=== PATIENT | male | born 1960 | race Two or more races ===

== ENCOUNTER 2020-01-11 17:11 | Emergency (ER) | payer OTHER ==
[~2020-01-11] VITALS: Ht 177.8 cm; Wt 77.1 kg
[2020-01-11 17:15] VITALS: BP 145/82
--- NOTE | 2020-01-11 17:23 | Emergency Room Report ---
History of Present Illness General Chief Complaint: Flu Like Symptoms Source: Patient Present Illness HPI Disclaimer: Please note that this report is being documented using DRAGON technology. This can lead to erroneous entry secondary to incorrect interpretation by the dictating instrument. HPI: 59-year-old male presents for evaluation of cough. Symptoms present 3 to 4 days. Nonproductive. Denies fever, chest pain, palpitations, shortness of breath, neck stiffness, rash, abdominal pain, nausea, vomiting, diarrhea. Patient states he always has nasal congestion and a sore throat due to chronic sinusitis. He is concerned because his stepson returned from [place] yesterday. Does not believe his son is sick but is not had any contact with them yet. They do share the same grounds but the patient lives in a different apartment from his son. His cough was present prior to his son's arrival yesterday. No other sick contacts noted. No recent travel for patient PMH: Diabetes, hypertension Allergies: None reported COVID-19 risk:Contact w/high r: Yes COVID-19 risk:Travel to affect: No Has patient experienced fuentes: Yes Coronavirus symptoms experienc: Cough Allergies: Coded Allergies: No Known Allergies (Unverified , 01/11/20) Review of Systems All Other Systems: negative except mentioned in HPI Physical Exam Vital Signs Date Time Temp Pulse Resp B/P (MAP) Pulse Ox O2 Delivery O2 Flow Rate FiO2 01/11/20 17:13 98.1 86 19 145/82 (103) 95 Room Air General: Awake and alert, no acute distress HEENT: NC/AT. EOMI. Cardiovascular: RRR. S1 and S2 normal. No murmur appreciated Resp: Normal work of breathing. No cough, wheezing or crackles appreciated Abdomen: Abdomen is soft, nondistended. Nontender Skin: Intact. No abrasions, laceration or rash over the exposed skin MSK: Normal tone and bulk. Moving all extremities. No obvious deformity. Neuro: Awake and alert. Mentating appropriately. Medical Decision Making Diagnostic Impression: Primary Impression: Cough Additional Impression: Pneumonia ER Course 59-year-old male presents for evaluation of nonproductive cough. While the patient does have and exposure to his stepson recently returning from [place] his symptoms started before his son arrived and has had no contact with him yet. He does not believe his son is ill. Otherwise he is well-appearing his lungs are clear, afebrile and denies any respiratory disease history. Novel coronavirus swab is unavailable at this facility at this time. Do not see indication for acute lab testing or imaging. He will be discharged and instructed to follow isolation/quarantine precautions for the next 2 weeks. Provide documentation for work regarding these recommendations. He can be tested at commercial labs in accordance with his PMD. Instructed to return with any new or worsening symptoms. Chest X-Ray Diagnostic Results Chest X-Ray Diagnostic Results : Chest X-Ray Ordered: Yes # of Views/Limited/Complete: 1 View Indication: Other - cough EP Interpretation: Yes Interpretation: no effusion, no pneumothorax, other - Possible early consolidation right lower lobe Impression: Other - Possible early pneumonia versus atelectasis right lower lobe Electronically Signed by: Electronically signed by Dr. Reid Latham Reevaluation Time: 18:08 Last Vital Signs Date Time Temp Pulse Resp B/P (MAP) Pulse Ox O2 Delivery O2 Flow Rate FiO2 01/11/20 17:13 98.1 86 19 145/82 (103) 95 Room Air Reevaluation Impression Notified by nursing staff that the patient eloped from the emergency department. X-ray concerning for possible early infiltrate of the right lower lobe though this may be atelectasis as well. Did not have a chance to discuss these findings with patient though I did send a medication for azithromycin to his pharmacy. Will call [facility] as he is a patient of [facility]. I did discuss with him quarantine precaution on my initial evaluation anticipating discharge but was not able to provide him with the paperwork to give to his employer. Will attempt to contact to relay this information. Disposition: ELOPED Condition: Stable Scripts Azithromycin* (ZITHROMAX*) 250 Mg Tablet 250 MG ORAL DAILY, #6 TAB 0 Refills Take two tables once daily for 1 day, then one tablet once daily for 4 days. Prov: Reid Latham MD 01/11/20 Reid Latham MD Jan 11, 2020 17:23
[2020-01-11 18:00] VITALS: BP 145/82
[2020-01-11] MEDS ORDERED: ZITHROMAX250 MG ORAL (18:01)
--- NOTE | 2020-01-12 08:52 | Diagnostic Imaging Report ---
Indication: Cough Technique: One view of the chest Comparison: none Findings: Inspiration is suboptimal. There is resultant crowding of bronchovascular markings. There is questionable minimal bilateral interstitial prominence. No consolidation or effusions Impression: Negative for infiltrate Questionable minimal bilateral interstitial prominence, acuity indeterminate if real
== END 2020-01-11 18:00 | disposition left against medical advice (07) ==
LOC: EMR 17:25
DX: J18.9 Pneumonia, unspecified organism (principal); R05 Cough; E11.9 Type 2 diabetes mellitus without complications; I10 Essential (primary) hypertension; Z53.29 Procedure and treatment not carried out because of patient's decision for other reasons
CPT/HCPCS: 71045; 99283